=== PATIENT | female | born 1990 | race Caucasian/White ===

== ENCOUNTER 2025-09-09 11:45 | Emergency (ER) | payer OTHER ==
[2025-09-09 12:05] VITALS: BP 117/62; PULSE 69; RESP 18; TEMP 98.2; BMI 28.8
[2025-09-09 12:29] LABS: URINE APPEARANCE CLEAR; URINE BILIRUBIN NEGATIVE (NEGATIVE); URINE COLOR YELLOW; URINE GLUCOSE (UA) NEGATIVE (NEGATIVE); URINE KETONE NEGATIVE (NEGATIVE); URINE LEUK ESTERASE TRACE (NEGATIVE); URINE NITRITE NEGATIVE (NEGATIVE); URINE PROTEIN NEGATIVE (NEGATIVE); URINE UROBILINOGEN 0.2 mg/dL (0.2-1.0)
[2025-09-09 13:44] LABS: HCV DIAGNOSTIC IN-HOUSE W/RFLX NON-REACTIVE (NONREACTIVE)
[2025-09-09 13:45] LABS: HIV INTERPRETATION NEGATIVE (NEGATIVE)
== END 2025-09-09 15:11 | disposition home or self-care (01) ==
LOC: JER 11:45
DX: O26.891 Other specified pregnancy related conditions, first trimester (principal); R10.30 Lower abdominal pain, unspecified; Z3A.01 Less than 8 weeks gestation of pregnancy
CPT/HCPCS: 36415; 76817-TC; 81003; 84702; 84703; 86803; 87086; 87389; 99284-25